=== PATIENT | male | born 1945 | race Caucasian/White ===

== ENCOUNTER 2020-04-08 10:33 | Emergency (ER) | payer MEDICARE, SELFPAY ==
[2020-04-08 10:43] VITALS: BP 109/62; PULSE 70; RESP 18; TEMP 36.8; O2SAT 100
--- NOTE | 2020-04-08 11:04 | ED.GENADULT ---
HPI - General Adult General Chief complaint: Skin/Abscess/Foreign Body Stated complaint: bite on cheek Time Seen by Provider: 04/08/20 11:05 Source: patient and RN notes reviewed Mode of arrival: ambulatory Limitations: no limitations History of Present Illness HPI narrative: 74-year-old male presents with complaints of itching, redness, warmth, tenderness, and swelling to LT cheek after being bit by an insect while outside for the past 3 days. Symptoms increased over the last 24 hours with nodule and then redness and warmth. Hydrocortisone cream without relief. Radiation of tenderness, redness, or swelling down LT side of face. No exacerbating factors per Jeb. Denies open areas or drainage. Denies fever or chills. Denies tongue or throat swelling. The patient reports he have not been diagnosed with COVID-19. The patient reports he is not waiting for the results of a COVID-19 lab test. The patient reports he do not have fever, chills, weakness, fatigue, or myalgia. The patient reports he do not have a new or worsening cough or shortness of breath. Denies chest pain. The patient reports he do not have any rhinorrhea, congestion, sore throat, nausea, vomiting, abdominal pain, and diarrhea. Tolerating po intake well. Denies recent traveling. Denies concerns for COVID-19 or exposures been home since [id number] order except for essential household needs and return home. At this time, patient is not suspected of having COVID-19. Some parts of this dictation were generated by voice recognition software and may contain typographical and/or grammatical inaccuracies. Related Data Home Medications Medication Instructions Recorded Confirmed atorvastatin 04/08/20 irbesartan mg 04/08/20 levothyroxine 04/08/20 losartan 04/08/20 metoprolol succinate PO 04/08/20 omeprazole 04/08/20 Allergies Allergy/AdvReac Type Severity Reaction Status Date / Time Sulfa (Sulfonamide Allergy Unknown Verified 04/08/20 10:56 Antibiotics) Review of Systems Review of Systems: Narrative: CONSTITUTIONAL: Denies fever, chills, sweats. EYES: Denies visual changes, redness, discharge. ENT: Denies rhinorrhea, congestion, sore throat, otalgia. CARDIOVASCULAR: Denies chest pain, palpitations, edema. RESPIRATORY: Denies dyspnea, wheezing, cough. GASTROINTESTINAL: Denies abdominal pain, nausea, vomiting, diarrhea. GENITOURINARY: Denies dysuria, hematuria, abnormal discharge. SKIN: Complains of itching, redness, warmth, tenderness, and swelling to LT cheek after being bit by an insect. Denies drainage. MUSCULOSKELETAL: Denies acute back pain, joint pain, or myalgia. NEUROLOGIC: Denies numbness or focal weakness. PSYCHIATRIC: Denies anxiety or depression. All systems reviewed & are unremarkable except as noted in HPI and below. [facility] Past Medical History Medical History (Updated 04/09/20 @ 00:00 by [facility] Daemon) History of gastroesophageal reflux (GERD) Hypercholesteremia Hypertension Lymphedema Tongue cancer Trigger finger Bilateral 4th (ring) fingers Surgical History Surgical History (Updated 04/08/20 @ 12:38 by KEITH Hernandez) History of hand surgery Trigger finger for bilateral 4th (ring) fingers History of knee surgery LT knee History of throat surgery Throat, tongue, and lymph node surgery related to cancer that original started on tongue Family History Family History Other Family history of lung cancer Family history of lymphoma Social History Social History (Updated 04/08/20 @ 12:39 by KEITH Hernandez) Smoking status: Former smoker Tobacco type: cigars Second hand tobacco smoke exposure: No Smoking end date: 03/01/13 Alcohol intake: former Alcohol use details: Last 03/01/2013 Substance use: never Living arrangements: with family Occupation/Education: retired Gender identity (if verbalized by the pat
== END 2020-04-08 11:30 | disposition home or self-care (01) ==
PROVIDERS: Emergency Provider Nurse Practitioner Family
DX: L03.211 Cellulitis of face (principal); Z87.891 Personal history of nicotine dependence; I10 Essential (primary) hypertension; Z85.810 Personal history of malignant neoplasm of tongue
CPT/HCPCS: 99213; G0463